=== PATIENT | female | born 1935 | race Caucasian/White ===

== ENCOUNTER 2025-01-06 10:55 | Emergency (ER) | payer MEDICARE ==
[~2025-01-06] VITALS: Ht 165.1 cm; Wt 100.3 kg
[2025-01-06 10:58] VITALS: BP 190/81; PULSE 55; RESP 16; TEMP 98; O2SAT 98
--- NOTE | 2025-01-06 12:44 | Physician Documentation ---
History of Present Illness ~ Chief Complaint: Hip pain Stated Complaint: R HIP/KNEE PAIN Time Seen by MD: 11:12 HPI Patient is seen today with complaints of pain of her right hip that started a few months ago but progressively has gotten worse. Patient states she just had x-rays taken 12 days ago but has not gotten the results from that yet. Patient states she is able to palpate the lateral aspect of her right hip in his painful. Patient has no other concern or complaint at this time. She states she is ambulatory but it is painful and she denies any recent falls or injuries. Medication Reconciliation Allergies: Coded Allergies: Penicillins (Unverified Allergy, Unknown, 01/06/25) nitrofurantoin (Unverified Allergy, Unknown, 01/06/25) Review of Systems Constitutional: Denies: chills, fever, weakness Eyes: Denies: pain, blurred vision ENT: Denies: ear pain, nose pain, throat pain, mouth pain Respiratory: Denies: cough, shortness of breath Cardiovascular: Denies: chest pain, palpitations Gastrointestinal: Denies: abdominal pain, nausea, vomiting Genitourinary: Denies: burning, dysuria Female Genitalia: Denies: vaginal discharge, pelvic pain Neurological: Denies: headache, dizziness Musculoskeletal: Denies: pain, swelling Integumentary: Denies: rash, lesions Allergic/Immunologic: Denies: hives, itching Hematologic/Lymphatic: Denies: no symptoms reported Psychiatric: Denies: depression, anxiety Physical Exam Vital Signs: Temperature: 98.0, Source: Temporal, Heart Rate: 55, Respiratory Rate: 16, BP: 190/81, Pulse Oximetry: 98, Weight: 100.300 Oxygen Flow Rate: 0 Physical Exam General: Awake and Alert, no acute distress. HEENT: Conjunctiva pink, Sclera clear, Mucus Membranes moist. Neck: Supple without masses and tenderness. Resp: Unlabored. Lungs clear to auscultation bilaterally. Heart: Regular Rate and rhythm, normal S1 and S2 without murmur, rub or gallop. Musculoskeletal: Patient on exam does have significant tenderness to palpation of the right greater trochanter. Patient is neurovascularly intact distally. Motor function intact distally. Range of motion is grossly intact of right hip. Extremities: No cyanosis,clubbing or edema. Skin: Warm and Dry. Progress Results/Orders Results/Orders Vital Signs 01/06/25 10:58 Temp 98.0 Pulse 55 Resp 16 B/P (MAP) 190/81 Pulse Ox 98 O2 Flow Rate 0 Medical Decision Making Findings Patient is seen today with complaints of pain of her right hip that started a few months ago but progressively has gotten worse. Patient states she just had x-rays taken 12 days ago but has not gotten the results from that yet. Patient states she is able to palpate the lateral aspect of her right hip in his painful. Patient has no other concern or complaint at this time. She states she is ambulatory but it is painful and she denies any recent falls or injuries. Patient will follow up with primary care to review x-rays of right hip. Patient likely has greater trochanteric bursitis of the right hip and will be given a prescription for [place] 5/325 mg tablets to be taken at night only. Shared decision-making utilized with the patient today. Patient is on a blood thinner and no NSAIDs or Toradol injection prescribed today. Patient may continue taking Tylenol for pain relief. I recommend patient also follow up with physical therapy for eval and treatment. Departure Disposition: HOME / SELF CARE / HOMELESS Impression: Primary Impression: Hip pain Qualified Codes: M25.551 - Pain in right hip Additional Impression: Bursitis of hip Qualified Codes: M70.61 - Trochanteric bursitis, right hip Condition: Stable Discharge Instructions: Elbow Bursitis, [id number] Additional Instructions: Patient will follow up with primary care to review x-rays of right hip. Patient likely has greater trochanteric bursitis of the right hip and will be given a prescription for [place] 5/325 mg tablets to be taken at night only. Shared decision-making utilized with the patient today. Patient is on a blood thinner and no NSAIDs or Toradol injection prescribed today. Patient may continue taking Tylenol for pain relief. I recommend patient also follow up with physical therapy for eval and treatment. Referrals: NO PRIMARY CARE PROVIDER (PCP) Prescriptions Hydrocodone Bit/Acetaminophen 5/325 MG ([place] 5/325 MG) 5 Mg/325 Mg Tablet 1-2 TAB PO Q4HPRN PRN for pain for 2 Days, #30 TAB Prov: LA PASCUAL 01/06/25 Signature Scribe Signature: No scribe Attestation: No scribe LA PASCUAL Jan 06, 2025 12:43
[2025-01-06] MEDS ORDERED: HYDR-3965 PO (13:13)
== END 2025-01-06 13:20 | disposition home or self-care (01) ==
LOC: ER 10:56
DX: M70.61 Trochanteric bursitis, right hip (principal); Z88.0 Allergy status to penicillin; Z88.1 Allergy status to other antibiotic agents
CPT/HCPCS: 99283

== ENCOUNTER 2025-03-20 05:59 | Emergency (ER) | payer MEDICARE ==
[~2025-03-20] VITALS: Ht 165.1 cm; Wt 99.0 kg
--- NOTE | 2025-03-20 06:19 | ELECTROCARDIOGRAPH REPORT ---
[facility] Test Date: 2025-03-20 Test Time: 06:02:55 Pat Name: THERESA YOUSSEF Department: EMERGENCY ROOM Room: Gender: F Science Manager: [place] : 1935 Requested By: JUAN JOSE ANN Order Number: [id number] Reading MD: Dr. Freedom Garner Measurements Intervals [place] Rate: 70 P: 50 WI: 145 QRS: -41 QRSD: 100 T: 67 QT: 393 QTc: 425 Interpretive Statements Sinus rhythm Atrial premature complex Left anterior fascicular block Probable left ventricular hypertrophy Anterior Q waves, possibly due to LVH Baseline wander in lead(s) V2 Electronically Signed On 03-20-2025 6:20:[address] Freedom Garner Please click the below link to view image of tracing.
--- NOTE | 2025-03-20 06:47 | RADIOLOGY REPORT ---
CHEST RADIOGRAPH Indication: CP Technique: Single frontal view of the chest was obtained COMPARISON: None FINDINGS: Lines and Tubes: None Lungs: Clear Pleura: No effusion. No pneumothorax. Cardiomediastinal contours: Unremarkable Bones: Unremarkable IMPRESSION: No acute disease.
[2025-03-20 07:02] LABS: MEAN PLATELET VOLUME 8.6 FL (7.4-10.4); RED CELL DISTRIBUTION WIDTH 14.4 % (11.5-14.5)
--- NOTE | 2025-03-20 07:20 | Physician Documentation ---
History of Present Illness ~ Chief Complaint: Palpitations Stated Complaint: PALPITATIONS Time Seen by MD: 06:41 OK to notify your PCP?: Yes Primary Medical Doctor: Adonay Compact Assembler: [place] Source: patient, RN/MD, EMS, RN notes reviewed, EMS notes reviewed, old records Mode of Arrival: EMS, Stretcher Exam Limitations: no limitations HPI This patient has a history of rapid AFib with RVR has not had one in a long time. She takes Eliquis as well as Coreg. 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 She states she has not been sleeping well but that has not a new thing she just moved into a new facility two weeks ago and has been wa lking down long [place] ways but denies any fatigue or weakness no chest pain no prior palpitations. There was no signs of infection no fevers chills cough no chest pain no weakness patient just woke up this morning did not receive her morning medications which included Coreg and went into rapid AFib with RVR heart rate was 150s. During her AFib episode she did not have any chest pain or shortness of breath. Upon arrival she has a normal sinus rhythm. Heart rate 60s to appears well she has no complaints Medication Reconciliation Allergies: Coded Allergies: Penicillins (Verified Allergy, Unknown, 03/20/25) nitrofurantoin (Verified Allergy, Unknown, 03/20/25) Past Medical History Past Medical History: Atrial Fibrillation, Bustits, Osteoarthritis Past Surgical History: orthopedic surgeries Smoking Status: Never smoker Alcohol Use: None Drug Use: none Review of Systems All Other Systems at this time: Reviewed and Negative Physical Exam Vital Signs: RN Vital Signs have been reviewed: Yes, Temperature: 98.2, Source: Oral, Heart Rate: 61, Respiratory Rate: 19, BP: 124/78, Pulse Oximetry: 96, Weight: 99.000 Oxygen Flow Rate: 0 Physical Exam General: The patient is well developed, well nourished, nontoxic appearing and is in no acute distress. Skin: [place], warm and dry with no rashes. HEENT: Head was normocephalic and atraumatic. Eyes - pupils equal, round, re active to light and accommodation. Extraocular movements were intact. Conjunctivae were nonicteric. The mouth and oropharynx were clear with moist mucous membranes. There were no pharyngeal exudates or erythema. Neck: Supple and nontender. There was no jugular venous distention, lymphadenopathy, thyromegaly or masses. Chest: Clear to auscultation bilaterally without wheezes, rales or rhonchi. No accessory muscle use. No dullness to percussion. Heart: Rate regular and rhythmic. S1, S2. 3/6 systolic ejection murmurs. Palpation of the chest wall was normal. No rubs or thrills. Abdomen: Soft, nontender and nondistended. Positive bowel sounds. No guarding or rebound. No hepatosplenomegaly or palpable masses. Extremities: No cyanosis, clubbing or edema. The patient moves all extremities. Pulses were equal and symmetric. Neurologic: Motor sensory grossly intact Psychologic: The patient was oriented to person, place and time. The patient demonstrated appropriate judgement and insight. Progress Results/Orders Results/Orders Orders - MAIA GARNER MD Carvedilol Tablet (Coreg Tablet) (03/20/25 07:35) Vital Signs 03/20/25 03/20/25 03/20/25 06:01 06:18 06:30 Temp 98.2 98.2 Pulse 70 61 Resp 12 17 19 B/P (MAP) 104/79 124/78 (93) Pulse Ox 98 96 O2 Flow Rate 0 0 Laboratory Tests Test 03/20/25 06:53 White Blood Count 4.7 Red Blood Count 3.73 L Hemoglobin 12.4 Hematocrit 37.3 Mean Corpuscular Volume 100.1 H Mean Corpuscular Hemoglobin 33.4 H Mean Corpuscular Hemoglobin Concent 33.3 Red Cell Distribution Width 14.4 Platelet Count 197 Mean Platelet Volume 8.6 Neutrophils (%) (Auto) 65.0 Lymphocytes (%) (Auto) 21.3 Monocytes (%) (Auto) 7.3 Eosinophils (%) (Auto) 5.1 Basophils (%) (Auto) 1.3 H Neutrophils # (Auto) 3.1 Lymphocytes # (Auto) 1.0 L Monocytes # (Auto) 0.3 Eosinophils # (Auto) 0.2 Basophils # (Auto) 0.1 CBC Comment Sodium Level 140 Potassium Level 4.0 Chloride Level 107 Carbon Dioxide Level 28.5 Anion Gap 5 L Blood Urea Nitrogen 14 Creatinine 0.71 Estimated GFR/1.73 m2 78 BUN/Creatinine Ratio 19.7 Glucose Level 90 Calcium Level 9.2 Magnesium Level 2.2 Troponin I High Sensitivity 9 Pro-B-Type Natriuretic Peptide 218 Albumin 3.5 Chemistry Comments Re-Evaluation Re-Evaluation : Re-Evaluation: Resolved Additional Comment No meds were provided patient was placed on a monitor remained in normal sinus rhythm. Her AFib with RVR at the facility with a heart rate of 150 has completely resolved. Laboratory work shows no abnormalities with electrolytes potassium magnesium. Kidney functions were also within normal limits there was no leukocytosis or left shift to suggest infection. Patient has no complaints. Patient was returned back to her facility so that she can take her morning meds. Coreg was given so the patient would not go back into rapid AFib. Continuous court monitor interpretation shows normal sinus rhythm heart rate 60s, no ectopy, normal, my interpretation. Pulse oximetry monitor interpretation shows normal oxygenation at 98% room air, normal, my interpretation. EKG/XRAY/CT/US/VASC/MRI EKG : Intepreting Monitor?: Yes Additional Comment [facility] Test Date: 2025-03-20 Test Time: 06:02:55 Pat Name: THERESA YOUSSEF Department: EMERGENCY ROOM Room: Gender: F Automotive Sales Specialist: : 1935 Requested By: JUAN JOSE ANN Order Number: [id number] Reading MD: Dr. Maia Garner Measurements Intervals [place] Rate: 70 P: 50 ME: 145 QRS: -41 QRSD: 100 T: 67 QT: 393 QTc: 425 Interpretive Statements Sinus rhythm Atrial premature complex Left anterior fascicular block Probable left ventricular hypertrophy Anterior Q waves, possibly due to LVH Baseline wander in lead(s) V2 Electronically Signed On 03-20-2025 6:20:[address] Maia Garner Please click the below link to view image of tracing. Chest X-Ray : Interpreted By: both Additional Comments CHEST RADIOGRAPH Indication: CP Technique: Single frontal view of the chest was obtained COMPARISON: None FINDINGS: Lines and Tubes: None Lungs: Clear Pleura: No effusion. No pneumothorax. Cardiomediastinal contours: Unremarkable Bones: Unremarkable IMPRESSION: No acute disease. Heart Score: Heart Score Response (Comments) Value History Slightly Suspicious 0 EKG Normal 0 Age >65 2 Risk Factors 1 or 2 risk factors 1 Troponin Normal limit 0 Total 3 Medical Decision Making Additional info obtained from: old records Differential Dx:Considerations: Include: angina / ND, atrial dysrhythmia, atrial fibrillation, atrial flutter, MAT, PACs, PSVT, sinus tachycardia, WPW, 1st degree AV block, 2nd degree AVB-type 1, 2nd degree AVB-type 2, 3rd degree AV block, PVCs, torsades de pointes, ventricular fibrillation, ventricular tachycardia, other Differential Dx:Considerations: Include anxiety/panic attack, Include digoxin toxicity, Include electrolyte disorder, Include heart failure, Include hyperthyroidism, Include hyperventilation, Include hypoxia, Include pacemaker malfunction, Include pulmonary embolus, Include renal failure, Include other Departure Disposition: 01 HOME / SELF CARE / HOMELESS Impression: Primary Impression: Atrial fibrillation with rapid ventricular response Condition: Stable Discharge Instructions: Palpitations, [id number] Referrals: NO PRIMARY CARE PROVIDER (PCP) Education Educated: Patient Educated regarding: diagnosis, need for follow up, other Signature Scribe Signature: . Attestation: The note accurately reflects work and decisions made by me.Maia Garner MD 07:19 MAIA GARNER MD Mar 20, 2025 07:20
[2025-03-20 07:22] LABS: CREATININE 0.71 MG/DL (0.40-0.90); PRO BRAIN NATRIURETIC PEPTIDE 218 PG/ML (0-450); TOTAL CARBON DIOXIDE 28.5 MMOL/L (24-32); eCRCL 48 ML/MIN; eGFR 78 ML/MIN
[2025-03-20 07:40] VITALS: BP 143/101; PULSE 67; RESP 14; O2SAT 99
[2025-03-20 07:47] VITALS: TEMP 98.2
== END 2025-03-20 08:00 | disposition home or self-care (01) ==
LOC: ER 06:00
DX: I48.20 Chronic atrial fibrillation, unspecified (principal); R06.02 Shortness of breath; M19.90 Unspecified osteoarthritis, unspecified site; Z88.0 Allergy status to penicillin; Z88.1 Allergy status to other antibiotic agents
CPT/HCPCS: 36415; 71045; 80048; 83735; 83880; 84484; 85025; 93005; 99285